=== PATIENT | male | born 1940 | race Caucasian/White ===

== ENCOUNTER → 2022-04-04 15:59 | Outpatient (BNVA) | payer SELFPAY | PROVIDERS: Visit Provider Nurse Practitioner Family | DX: S92.022A Displaced fracture of anterior process of left calcaneus, initial encounter for closed fracture (principal); X58.XXXA Exposure to other specified factors, initial encounter; M65.872 Other synovitis and tenosynovitis, left ankle and foot; M25.472 Effusion, left ankle | CPT/HCPCS: 73610 ==